=== PATIENT | male | born 1930 | race Caucasian/White ===

== ENCOUNTER 2017-09-29 12:32 | Emergency (ER) | payer OTHER ==
--- NOTE | 2017-09-29 13:05 | PDOC ---
History of Present Illness - General Stated Complaint: LEG PAIN Time Seen by Provider: 09/29/17 12:47 History Source: Patient Exam Limitations: No Limitations - History of Present Illness Initial Comments: 09/29/17 13:05 86m with pmh of dementia, arthritis, prostate and testicular cancer, resident of [facility] brought in by EMS after a fall from his bed/chair on his right hip. [place] also raised concern that patient might have c.diff due to strange smell from feces and have performed two stool tests giving a positive and a negative result. Patient denies being in any pain currently. 09/29/17 13:33 Past History - Past Medical History Allergies/Adverse Reactions: Allergies Allergy/AdvReac Type Severity Reaction Status Date / Time No Known Allergies Allergy Verified 09/29/17 13:24 Home Medications: Ambulatory Orders Ascorbic Acid [Vitamin C -] 500 mg PO DAILY 09/29/17 Cyanocobalamin (Vitamin B-12) [B-12] 1,000 mcg PO DAILY 09/29/17 Divalproex [Depakote -] 125 mg PO TID 09/29/17 Escitalopram Oxalate [Lexapro -] 10 mg PO DAILY 09/29/17 Ferrous Sulfate 325 mg PO DAILY 09/29/17 Glipizide [Glipizide ER] 2.5 mg PO DAILY 09/29/17 Glipizide [Glipizide ER] 5 mg PO DAILY 09/29/17 Insulin Glargine,Hum.rec.anlog [Lantus] 2 unit SQ DAILY 09/29/17 Insulin Lispro [Humalog] 0 unit SQ ACHS PRN 09/29/17 Oseltamivir Phosphate [Tamiflu -] 75 mg PO DAILY 09/29/17 Quetiapine Fumarate [Seroquel -] 25 mg PO HS 09/29/17 Tamsulosin HCl [Flomax] 0.4 mg PO DAILY 09/29/17 Vancomycin HCl 250 mg PO DAILY 09/29/17 Review of Systems - Review of Systems Able to Perform ROS?: Yes Constitutional: No: Symptoms Reported HEENTM: No: Symptoms Reported Respiratory: No: Symptoms reported Cardiac (ROS): No: Symptoms Reported ABD/GI: No: Symptoms Reported : No: Symptoms Reported Musculoskeletal: No: Symptoms Reported Integumentary: No: Symptoms Reported Neurological: No: Symptoms reported Endocrine: No: Symptoms Reported Hematologic/Lymphatic: No: Symptoms Reported All Other Systems: Reviewed and Negative *Physical Exam - Physical Exam General Appearance: Yes: Nourished, Appropriately Dressed, Apparent Distress HEENT: positive: EOMI, MIRANDA, Normal ENT Inspection Neck: negative: Tender Respiratory/Chest: positive: Lungs Clear, Normal Breath Sounds. negative: Chest Tender Cardiovascular: positive: Regular Rhythm, Regular Rate, S1, S2 Gastrointestinal/Abdominal: positive: Normal Bowel Sounds, Flat, Soft. negative : Tender Neurologic: positive: Fully Oriented, Alert, Normal Mood/Affect Medical Decision Making - Medical Decision Making 09/29/17 13:36 evaluation of hip fracture with xrays, 09/29/17 15:00 xrays negative stool sample for cfdiff sent. will call if results are positive *DC/Admit/Observation/Transfer Diagnosis at time of Disposition: Well adult exam, Fall - Discharge Dispostion Disposition: HOME Admit: No - Referrals Referrals: Saurabh Root MD [Primary Care Provider] - - Patient Instructions Printed Discharge Instructions: Fernando Chi May Improve Physical Function, Reduce Falls, How to Prevent Falls Additional Instructions: Come back to the ER for any new, worsening or concerning symptoms. We will contact you if the results of your stool sample are positive. - Post Discharge Activity
[2017-09-29 13:07] VITALS: BMI 25.0
--- NOTE | 2017-09-29 13:48 | PDOC ---
Attending Attestation - HPI HPI: 09/29/17 13:52 The patient is a 86 year old male brought via EMS from [facility] and presenting with his family, with a significant past medical history of dementia, prostate CA and testicular CA s/p testicular removal, who presents to the emergency department with right hip pain after a fall today. It is reported that the patient fell from a chair onto his right hip and the long-term believes that the patient might have a fracture, which prompted them to send the patient to the ED. Allergies: None Past surgical history: Testicular removal Social history: No alcohol, tobacco or drug use reported PMD: Dr. Saurabh Root - Physicial Exam PE: 09/29/17 13:52 GENERAL: Awake, alert, and fully oriented, in no acute distress HEAD: No signs of trauma, normocephalic, atraumatic EYES: PERRLA, EOMI, sclera anicteric, conjunctiva clear ENT: Auricles normal inspection, hearing grossly normal, nares patent, oropharynx clear without exudates. Moist mucosa NECK: Normal ROM, supple, no lymphadenopathy, JVD, or masses LUNGS: No distress, speaks full sentences, clear to auscultation bilaterally HEART: Regular rate and rhythm, normal S1 and S2, no murmurs, rubs or gallops, peripheral pulses normal and equal bilaterally. ABDOMEN: Soft, nontender, normoactive bowel sounds. No guarding, no rebound. No masses EXTREMITIES : (+) Right hip pain. Normal range of motion, no edema. No clubbing or cyanosis. NEUROLOGICAL: (+) Uses wheelchair on baseline. Cranial nerves II through XII grossly intact. Normal speech, no focal sensorimotor deficits SKIN: Warm, Dry, normal turgor, no rashes or lesions noted. <Kavon Lopez - Last Filed: 09/29/17 13:52> - Resident Resident Name: Torrey Villeda - ED Attending Attestation I have performed the following: I have examined & evaluated the patient, The case was reviewed & discussed with the resident, I agree w/resident's findings & plan, Exceptions are as noted - Medical Decision Making 09/29/17 13:25 a/p: 86yo male presents via medics for eval of poss femur fracture and foul smelling stool -no diarrhea -had cdiff at facility that was + and - -no abd pain. no n/v -at baseline ms -nontoxic appearance -scratch curtis to R hip, no ttp of either hip -distal R femur ttp, FROM of both legs -discussed plan with daughter who agrees with the plan -pt is plently demented 09/29/17 14:24 xrays reviewed - no fractures visualized pending radiology reads 09/29/17 14:55 xrays negative stool sample sent, nontoxic in appearance 09/29/17 15:02 daughter updated on results <Masha Richardson - Last Filed: 09/29/17 15:02>
[2017-09-29 16:30] VITALS: BP 144/51; PULSE 96
== END 2017-09-29 16:31 ==
LOC: JER 12:32
DX: M25.551 Pain in right hip (principal); W07.XXXA Fall from chair, initial encounter; Y93.89 Activity, other specified; Y92.122 Bedroom in nursing home as the place of occurrence of the external cause; Y99.8 Other external cause status; F03.90 Unspecified dementia, unspecified severity, without behavioral disturbance, psychotic disturbance, mood disturbance, and anxiety; Z85.46 Personal history of malignant neoplasm of prostate; Z85.47 Personal history of malignant neoplasm of testis; Z90.79 Acquired absence of other genital organ(s); M12.9 Arthropathy, unspecified; Z99.3 Dependence on wheelchair
CPT/HCPCS: 73523-TC; 73552-TC-LT; 73552-TC-RT; 99282-25